=== PATIENT | female | born 1985 | race Caucasian/White ===

== ENCOUNTER 2019-10-21 18:46 | Inpatient (IN) | payer BC ==
--- NOTE | 2019-10-22 00:11 | PR ---
[facility] [address] [facility] [place] [address] Signed Progress Notes IP Datetime Report Generated by CPN: 10/22/2019 00:11 PROGRESS NOTES: [id number] Impression: Normal Progression of Labor Procedures: Artificial ROM Plan: Continue Present Management; Anticipate Vaginal Delivery VITAL SIGNS: [id number] Vital Signs: Reviewed; Within Normal Limits EXAM: [id number] Dilatation: 2.5 Effacement: 70 Station: -2 Contractions: every 2-3 minutes MEMBRANES: [id number] Membranes Status: Ruptured Comments: Tolerating contractions well FETUS A: [id number] FHR Baseline: 150 Variability: Moderate 6-25bpm Presentation: Vertex FETUS B: [id number] Signing Physician: Jonas Morfin MD Copies: ~ *Electronically Signed* 10/22/19 0011 JONAS MORFIN MD PATIENT NAME: MARY MARX PROGRESS NOTE DATE OF : 85 PHYSICIAN: JONAS MORFIN MD RPT #: [id number] REPORT IS CONFIDENTIAL AND NOT TO BE RELEASED WITHOUT AUTHORIZATION
--- NOTE | 2019-10-22 13:09 | PR ---
[facility] [address] [facility] [place], [place] [address] Signed PP Progress Notes Datetime Report Generated by CPN: 10/22/2019 13:08 SUBJECTIVE: [id number] Pain: Within Normal Limits Nausea/Vomiting: Denies Vital Signs: [id number] Vital Signs: Reviewed; Within Normal Limits EXAM: Ongoing Abdomen/Uterus: Normal Lochia: Normal Extremities: Normal IMPRESSION/PLAN/PROCEDURES: [id number] Impression: Normal Progression Plan: Continue Present Management Procedures: None Progress Notes: Doing well, without complaint. Signing Physician: Jonas Morfin MD Copies: ~ *Electronically Signed* 10/22/19 1308 JONAS MORFIN MD PATIENT NAME: MARY MARX PROGRESS NOTE DATE OF : 85 PHYSICIAN: JONAS MORFIN MD RPT #: [id number] REPORT IS CONFIDENTIAL AND NOT TO BE RELEASED WITHOUT AUTHORIZATION
--- NOTE | 2019-10-23 12:28 | PR ---
[facility] [address] [facility] [place] [address] Signed PP Progress Notes Datetime Report Generated by CPN: 10/23/2019 12:28 SUBJECTIVE: [id number] Pain: Within Normal Limits Nausea/Vomiting: Denies Vital Signs: [id number] Vital Signs: Reviewed; Within Normal Limits Notable Details: PP Hgb/Hct = 11.2/35.2 EXAM: Ongoing Abdomen/Uterus: Normal Lochia: Normal Extremities: Normal IMPRESSION/PLAN/PROCEDURES: [id number] Impression: Normal Progression Plan: Discharge Procedures: None Progress Notes: Doing well, without complaint, ready to go home Signing Physician: Jonas Morfin MD Copies: ~ *Electronically Signed* 10/23/19 1228 JONAS MORFIN MD PATIENT NAME: MARY MARX PROGRESS NOTE DATE OF : 85 PHYSICIAN: JONAS MORFIN MD RPT #: [id number] REPORT IS CONFIDENTIAL AND NOT TO BE RELEASED WITHOUT AUTHORIZATION
== END 2019-10-23 16:00 | disposition home or self-care (01) | DRG 768 ==
LOC: FBCO 18:46 → FBC 18:55 → EDSTATUS 10-22 18:43 → FBC 10-23 16:00
PROVIDERS: ADMIT General Practice; ATTEND General Practice
PROC: 10E0XZZ Delivery of Products of Conception, External Approach (ICD-10-PCS; principal; 2019-10-22)
PROC: 0DQR0ZZ Repair Anal Sphincter, Open Approach (ICD-10-PCS; 2019-10-22)
PROC: 10907ZC Drainage of Amniotic Fluid, Therapeutic from Products of Conception, Via Natural or Artificial Opening (ICD-10-PCS; 2019-10-22)
DX: O24.420 Gestational diabetes mellitus in childbirth, diet controlled (principal); Z37.0 Single live birth; O70.20 Third degree perineal laceration during delivery, unspecified; Z3A.40 40 weeks gestation of pregnancy; O99.62 Diseases of the digestive system complicating childbirth; K58.9 Irritable bowel syndrome, unspecified
CPT/HCPCS: 36415; 85027; 88720; A9270; J2590